=== PATIENT | female | born 1990 | race Caucasian/White ===

== ENCOUNTER 2018-03-19 12:33 | Emergency (ER) | END 2018-03-19 15:39 | disposition home or self-care (01) ==

== ENCOUNTER 2018-06-22 12:44 | Outpatient (CLI) | END 2018-06-22 16:14 | disposition home or self-care (01) ==

== ENCOUNTER 2018-06-23 12:14 | Outpatient (CLI) | END 2018-06-23 16:41 | disposition home or self-care (01) ==

== ENCOUNTER 2018-09-04 10:19 | Outpatient (CLI) | END 2018-09-04 11:20 | disposition home or self-care (01) ==

== ENCOUNTER 2018-09-08 05:06 | Inpatient (IN) | END 2018-09-10 13:55 | disposition home or self-care (01) | DRG 807 ==